=== PATIENT | female | born 1950 | race Caucasian/White ===

== ENCOUNTER 2018-10-24 11:57 | Emergency (ER) | payer MEDICARE, SELFPAY ==
[2018-10-24 12:07] VITALS: BP 105/64; PULSE 84; RESP 18; TEMP 36.6; O2SAT 100
[2018-10-24 12:14] VITALS: BP 105/64; PULSE 84; RESP 18; TEMP 36.6; O2SAT 100
--- NOTE | 2018-10-24 12:32 | ED.GENADULT ---
HPI - General Adult General Chief complaint: Urogenital-Female Stated complaint: Dialysis problem, parts that need to be replaced Time Seen by Provider: 10/24/18 12:06 Source: patient and family Mode of arrival: ambulatory Limitations: no limitations History of Present Illness HPI narrative: Patient is 68-year-old female with history of end-stage renal disease on peritoneal dialysis [place]algia [place] with peritoneal dialysis tubing problem. She actually was discharged from hospital in [place] 10/10/18 with sepsis thought to have a UTI. They arrived in [facility] on the . states that she has been a little more confused it comes and goes. Last evening she had confusion he thinks that she cut her tubing that looks up to the machine with some nail scissors. He said there was fluid all over the floor she does not remember doing it at all. She has no focal deficits. She denies any fevers she has absolutely no abdominal pain. She still does make some urine. Related Data Home Medications Medication Instructions Recorded Confirmed acyclovir 400 mg PO BID PRN 10/24/18 10/24/18 amitriptyline 25 mg PO BEDTIME 10/24/18 10/24/18 qsdbqigkgy-nsmahjfemzsfy-tnsz 2 cap PO Q6H PRN 10/24/18 10/24/18 clonazepam 2 mg PO BEDTIME PRN 10/24/18 10/24/18 diclofenac sodium [Voltaren] 0 g TOPICAL 1-2XD PRN 10/24/18 10/24/18 escitalopram oxalate 20 mg PO DAILY 10/24/18 10/24/18 fentanyl 75 mcg TOPICAL Q2D 10/24/18 10/24/18 fluticasone propionate [Flovent 2 puff INHALATION DAILY 10/24/18 10/24/18 HFA] gabapentin 300 mg PO BEDTIME 10/24/18 10/24/18 lansoprazole 30 mg PO QAM 10/24/18 10/24/18 levothyroxine 137 mcg PO DAILY 10/24/18 10/24/18 midodrine 2.5 mg PO TID 10/24/18 10/24/18 naloxone [Narcan] 1 spray INTRANASAL PRN PRN 10/24/18 10/24/18 ondansetron 4 mg PO PRN PRN 10/24/18 10/24/18 oxycodone 10 mg PO PRN PRN 10/24/18 10/24/18 potassium chloride 10 meq PO QPM 10/24/18 10/24/18 ropinirole 3 mg PO BEDTIME 10/24/18 10/24/18 salmeterol [Serevent Diskus] 1 inh INHALATION DAILY 10/24/18 10/24/18 Allergies Allergy/AdvReac Type Severity Reaction Status Date / Time cefaclor [From Ceclor] Allergy Intermediate Hives Verified 10/24/18 13:00 azithromycin Allergy Mild Rash Verified 10/24/18 13:00 ceftriaxone [From Rocephin] Allergy Mild Rash Verified 10/24/18 13:00 levofloxacin [From Levaquin] Allergy Mild Rash Verified 10/24/18 13:00 trazodone Allergy Mild Rash Verified 10/24/18 13:00 sulfamethoxazole Allergy Verified 10/24/18 13:00 [From Bactrim] trimethoprim [From Bactrim] Allergy Verified 10/24/18 13:00 diphenhydramine AdvReac Severe Insomnia Verified 10/24/18 13:00 [From Benadryl] doxepin AdvReac Severe fluid Verified 10/24/18 13:00 retention doxycycline AdvReac Severe Nausea Verified 10/24/18 13:01 nitrofurantoin AdvReac Severe Photosensit Verified 10/24/18 13:01 [From Macrodantin] ivity prochlorperazine AdvReac Severe Cramping Verified 10/24/18 13:00 [From Compazine] of the Muscles venlafaxine [From Effexor] AdvReac Severe Insomnia Verified 10/24/18 13:01 moxifloxacin [From Avelox] AdvReac Mild Photosensit Verified 10/24/18 13:00 ivity Review of Systems Review of Systems ROS Unobtainable: All systems reviewed & are unremarkable except as noted in HPI and below Constitutional Constitutional: Denies chills, Denies fever(s), Denies lethargy and Denies weakness Eyes Eyes: Denies change in vision, Denies eye discharge, Denies irritation and Denies loss of vision ENT Ears, Nose, Mouth, and Throat: Denies change in voice, Denies neck pain and Denies sore throat Cardiovascular Cardiovascular: Denies chest pain, Denies irregular heart rhythm, Denies lightheadedness, Denies palpitations, Denies dyspnea, Denies dyspnea on exertion and Denies orthopnea Respiratory Respiratory: Denies cough, Denies dyspnea, Denies dyspnea on exertion and Denies wheezing Gastrointestinal Gastrointestinal: Denies abdominal pain, Denies change in bowel habits, Denies diarrhea, Denies nausea and Denies vomiting Genitourinary Genitourinary: Reports as per HPI Musculoskeletal Musculoskeletal: Denies neck pain Integumentary/Breasts Skin/Breast: Denies pruritus, Denies erythema, Denies rash and Denies wounds Neurologic Neurologic: Denies loss of vision and Denies weakness Endocrine Endocrine: Denies palpitations Allergic/Immunologic Allergic/Immunologic: Denies wheezing [facility] Medical History COPD (chronic obstructive pulmonary disease) (Acute) Depression (Acute) ESRD on peritoneal dialysis (Acute) Fibromyalgia (Acute) Social History (Updated 10/24/18 @ 15:09 by Pau Brennan DO) marital status: lives independently: Yes Social History marital status: lives independently: Yes Exam Initial Vital Signs Initial Vital Signs: Vital Signs Temperature 97.8 F 10/24/18 12:07 Pulse Rate 84 10/24/18 12:07 Respiratory Rate 18 10/24/18 12:07 Blood Pressure 105/64 10/24/18 12:07 Pulse Oximetry 100 10/24/18 12:07 GENERAL: Alert pleasant female and in no acute distress. HEENT: Head atraumatic,EOMI, pupils reactive, face symmetric CARDIOVASCULAR: Regular rate and rhythm without murmurs, rubs or gallops. RESPIRATORY: Breath sounds equal bilaterally, no wheezes rales or rhonchi. ABDOMEN: Soft, nontender. Normoactive bowel sounds all 4 quadrants. No guarding or rebound. Peritoneal tubing in place with adapter noted EXTREMITIES: Normal range of motion, no clubbing or edema. Neurovascularly intact NEUROLOGICAL: Alert and oriented x4.Normal gait and speech. Cranial nerves II through XII grossly intact. SKIN: Warm, dry, no laceration, no petechiae, no rashes or lesions. Course Orders Ordered: ED Orders 10/24/18 12:43 XR chest 1V Stat 10/24/18 13:00 Ammonia (NH3) Stat Complete Blood Count AUTO DIFF Stat Comprehensive Metabolic Panel Stat Lactate (Lactic Acid) Stat Procalcitonin Stat 10/24/18 13:19 Blood Culture Stat 10/24/18 13:53 Urinalysis and Microscopic Stat Urine Culture Stat Discontinued Medications Vancomycin HCl (Vancomycin) 1,000 mg in 200 mls @ 200 mls/hr IV NOW ONE Stop: 10/24/18 15:38 Last Admin: 10/24/18 15:12 Dose: 200 mls/hr Documented by: RONY Piperacillin/Tazobactam/Dextrose (Zosyn) 3.375 gm in 50 mls @ 100 mls/hr IV NOW ONE Stop: 10/24/18 15:10 Last Admin: 10/24/18 16:08 Dose: Not Given Documented by: RONY Vital Signs Vital signs: Vital Signs - 8 hr 10/24/18 12:07 10/24/18 12:14 10/24/18 13:00 Temperature 97.8 F 97.8 F Pulse Rate 84 84 77 Respiratory Rate 18 18 18 Blood Pressure 105/64 Blood Pressure [Right Arm] 105/64 118/43 L Pulse Oximetry 100 100 100 10/24/18 13:51 10/24/18 14:00 10/24/18 14:30 Temperature Pulse Rate 77 78 75 Respiratory Rate 18 16 16 Blood Pressure Blood Pressure [Right Arm] 143/59 H 103/53 L 107/44 L Pulse Oximetry 100 100 100 Medical Decision Making Lab Data Lab results reviewed: Yes I reviewed the patient's lab results. Result diagrams: 10/24/18 13:00 10/24/18 13:00 Labs: Lab Results 10/24/18 10/24/18 10/24/18 Range/Units 13:00 13:00 13:00 WBC 7.5 (4.5-11.0) X10^3/uL RBC 3.15 L (4.0-5.2) X10^6/uL Hgb 11.1 L (12.0-16.0) g/dL Hct 32.7 L (36-46) % MCV 103.8 H (80-100) fL MCH 35.2 H (26-34) PG MCHC 33.9 (30-36) % RDW 15.7 H (11.6-14.8) % Plt Count 290 (150-400) X10^3/uL Neut % (Auto) 54.2 (50-75) % Lymph % (Auto) 28.9 (25-40) % [place] % (Auto) 10.9 (3-14) % Eos % (Auto) 5.5 H (2-4) % Baso % (Auto) 0.5 (0-2) % Neut # (Auto) 4100 (9513-8640) /uL Lymph # (Auto) 2200 (2164-1347) /uL [place] # (Auto) 800 (0-900) /uL Eos # (Auto) 400 (0-450) /uL Baso # (Auto) 0 (0-100) /uL Sodium 137 (137-145) mmol/L Potassium 5.1 (3.4-5.1) mmol/L Chloride 93 L (98-107) mmol/L Carbon Dioxide 26 (22-32) mmol/L BUN 69 H (7-17) mg/dL Creatinine 7.90 H* (0.52-1.04) mg/dL Estimated GFR 5.1 L (>60) mL/min BUN/Creatinine Ratio 8.7 (6-22) Glucose 146 H (80-110) mg/dL Lactate (0.7-2.1) mmol/L Calcium 9.6 (8.4-10.2) mg/dL Total Bilirubin 2.0 H (0.2-1.3) mg/dL AST 90 H (14-36) IU/L ALT 48 (9-52) IU/L Alkaline Phosphatase 137 H (38-126) U/L Ammonia (9-30) umol/L Total Protein 8.1 (6.3-8.2) g/dL Albumin 4.3 (3.5-5.0) g/dL Globulin 3.8 (1.7-4.1) g/dL Albumin/Globulin Ratio 1.1 (1.0-2.8) Procalcitonin 0.57 H (<0.5) ng/mL Urine Color Urine Appearance Urine pH (4.5-8.0) Ur Specific [place] (1.000-1.035) Urine Protein (Negative) Urine Glucose (UA) (Negative) g/dL Urine Ketones (NEGATIVE) Urine Occult Blood (Negative) Urine Nitrate (Negative) Urine Bilirubin (NEGATIVE) Urine Urobilinogen (0.2) E.U./dL Ur Leukocyte Esterase (NEGATIVE) Urine RBC Urine WBC Ur Squamous Epith Cells Ur Transition Epith Cell Ur Renal Epithelial Cell Calcium Oxalate Crystal Uric Acid Crystals Triple Phos Crystals Other Crystals Amorphous Sediment Urine Bacteria Hyaline Casts Granular Casts RBC Casts WBC Casts Other Casts Urine Mucus Urine Trichomonas Urine Yeast Urine Sperm Ur Culture Indicated? Micro UA Comment 10/24/18 10/24/18 10/24/18 Range/Units 13:00 13:00 13:53 WBC (4.5-11.0) X10^3/uL RBC (4.0-5.2) X10^6/uL Hgb (12.0-16.0) g/dL Hct (36-46) % MCV (80-100) fL MCH (26-34) PG MCHC (30-36) % RDW (11.6-14.8) % Plt Count (150-400) X10^3/uL Neut % (Auto) (50-75) % Lymph % (Auto) (25-40) % [place] % (Auto) (3-14) % Eos % (Auto) (2-4) % Baso % (Auto) (0-2) % Neut # (Auto) (6309-8439) /uL Lymph # (Auto) (2982-4686) /uL [place] # (Auto) (0-900) /uL Eos # (Auto) (0-450) /uL Baso # (Auto) (0-100) /uL Sodium (137-145) mmol/L Potassium (3.4-5.1) mmol/L Chloride (98-107) mmol/L Carbon Dioxide (22-32) mmol/L BUN (7-17) mg/dL Creatinine (0.52-1.04) mg/dL Estimated GFR (>60) mL/min BUN/Creatinine Ratio (6-22) Glucose (80-110) mg/dL Lactate 1.4 (0.7-2.1) mmol/L Calcium (8.4-10.2) mg/dL Total Bilirubin (0.2-1.3) mg/dL AST (14-36) IU/L ALT (9-52) IU/L Alkaline Phosphatase (38-126) U/L Ammonia 16.0 (9-30) umol/L Total Protein (6.3-8.2) g/dL Albumin (3.5-5.0) g/dL Globulin (1.7-4.1) g/dL Albumin/Globulin Ratio (1.0-2.8) Procalcitonin (<0.5) ng/mL Urine Color Urine Appearance Urine pH (4.5-8.0) Ur Specific [place] (1.000-1.035) Urine Protein (Negative) Urine Glucose (UA) (Negative) g/dL Urine Ketones (NEGATIVE) Urine Occult Blood (Negative) Urine Nitrate (Negative) Urine Bilirubin (NEGATIVE) Urine Urobilinogen (0.2) E.U./dL Ur Leukocyte Esterase (NEGATIVE) Urine RBC Cancelled Urine WBC Cancelled Ur Squamous Epith Cells Cancelled Ur Transition Epith Cell Cancelled Ur Renal Epithelial Cell Cancelled Calcium Oxalate Crystal Cancelled Uric Acid Crystals Cancelled Triple Phos Crystals Cancelled Other Crystals Cancelled Amorphous Sediment Cancelled Urine Bacteria Cancelled Hyaline Casts Cancelled Granular Casts Cancelled RBC Casts Cancelled WBC Casts Cancelled Other Casts Cancelled Urine Mucus Cancelled Urine Trichomonas Cancelled Urine Yeast Cancelled Urine Sperm Cancelled Ur Culture Indicated? Cancelled Micro UA Comment Cancelled 10/24/18 Range/Units 13:53 WBC (4.5-11.0) X10^3/uL RBC (4.0-5.2) X10^6/uL Hgb (12.0-16.0) g/dL Hct (36-46) % MCV (80-100) fL MCH (26-34) PG MCHC (30-36) % RDW (11.6-14.8) % Plt Count (150-400) X10^3/uL Neut % (Auto) (50-75) % Lymph % (Auto) (25-40) % [place] % (Auto) (3-14) % Eos % (Auto) (2-4) % Baso % (Auto) (0-2) % Neut # (Auto) (3223-7302) /uL Lymph # (Auto) (5068-6511) /uL [place] # (Auto) (0-900) /uL Eos # (Auto) (0-450) /uL Baso # (Auto) (0-100) /uL Sodium (137-145) mmol/L Potassium (3.4-5.1) mmol/L Chloride (98-107) mmol/L Carbon Dioxide (22-32) mmol/L BUN (7-17) mg/dL Creatinine (0.52-1.04) mg/dL Estimated GFR (>60) mL/min BUN/Creatinine Ratio (6-22) Glucose (80-110) mg/dL Lactate (0.7-2.1) mmol/L Calcium (8.4-10.2) mg/dL Total Bilirubin (0.2-1.3) mg/dL AST (14-36) IU/L ALT (9-52) IU/L Alkaline Phosphatase (38-126) U/L Ammonia (9-30) umol/L Total Protein (6.3-8.2) g/dL Albumin (3.5-5.0) g/dL Globulin (1.7-4.1) g/dL Albumin/Globulin Ratio (1.0-2.8) Procalcitonin (<0.5) ng/mL Urine Color Yellow Urine Appearance Cloudy Urine pH 7.0 (4.5-8.0) Ur Specific [place] 1.010 (1.000-1.035) Urine Protein 3+ H (Negative) Urine Glucose (UA) Negative (Negative) g/dL Urine Ketones Trace H (NEGATIVE) Urine Occult Blood 2+ H (Negative) Urine Nitrate Negative (Negative) Urine Bilirubin Negative (NEGATIVE) Urine Urobilinogen 0.2 (0.2) E.U./dL Ur Leukocyte Esterase 2+ H (NEGATIVE) Urine RBC >100/hpf H Urine WBC >100/hpf H Ur Squamous Epith Cells 0-1 /hpf Ur Transition Epith Cell Ur Renal Epithelial Cell Calcium Oxalate Crystal Uric Acid Crystals Triple Phos Crystals Other Crystals Amorphous Sediment Urine Bacteria None seen Hyaline Casts Granular Casts RBC Casts WBC Casts Other Casts Urine Mucus Urine Trichomonas Urine Yeast Urine Sperm Ur Culture Indicated? Specimen cultured Micro UA Comment Imaging Data Chest x-ray: Radiologist's impression: PROCEDURE: XR CHEST 1V INDICATIONS: confusion TECHNIQUE: One view of the chest was acquired. COMPARISON: None. FINDINGS: Surgical changes and devices: None. Lungs and pleura: Lungs are clear. No pleural effusions or pneumothorax. Mediastinum: Mediastinal contours appear normal. Heart size is normal. Bones and chest wall: No suspicious bony lesions. Overlying soft tissues appear unremarkable. IMPRESSION: No acute process. Dictated by: Wilian Bolton M.D. on 10/24/2018 at 13:51 MDM Narrative Medical decision making narrative: Patient does not appear to have peritonitis yet to however she has significant exposure with the tubing that has been cut. She has been confused for the last few days unknown if this is due to a possible UTI. She is afebrile no leukocytosis. Procalcitonin according to discharge summary was 4, today it is 0.57. She does make a small amount of urine it was quite cloudy possible infection again. X-ray is clear. She has no focal deficits I do not think stroke at this time. Initially spoke with Dr. Piña nephrology over at [facility]. Patient does not have the transfer tubing kit that is needed to exchange the tubing. Recommend IV antibiotics, transfer and admit to hospitalist. I called [facility] and spoke with marine meteorologist there as well. He states unable to exchange any sort of tubing unless the patient is transferred for admission. He is not sure that they have the correct tubing either. The patient is calling [facility] overnight shifting of the transfer tubing set Dr. Ding hospitalist at [facility] accepts patient for transfer. Discharge Plan Departure Patient Disposition: [facility] Clinical Impression: ESRD on peritoneal dialysis, Depression Urinary tract infection Qualifiers: Urinary tract infection type: site unspecified Hematuria presence: with hematuria Qualified Code(s): N39.0 - Urinary tract infection, site not specified Discharge Date/Time: 10/24/18 16:08 Prescriptions: No Action levothyroxine 137 mcg tablet 137 mcg PO DAILY RF: 0 potassium chloride 10 mEq tablet extended release 10 meq PO QPM RF: 0 acyclovir 400 mg tablet 400 mg PO BID PRN (Reason: Cold Sores) RF: 0 amitriptyline 25 mg tablet 25 mg PO BEDTIME RF: 0 ropinirole 2 mg tablet 3 mg PO BEDTIME RF: 0 lansoprazole 30 mg capsule,delayed release(DR/EC) 30 mg PO QAM RF: 0 clonazepam 2 mg tablet 2 mg PO BEDTIME PRN (Reason: Insomnia) RF: 0 Serevent Diskus 50 mcg/dose blister with device 1 inh INHALATION DAILY RF: 0 gabapentin 300 mg capsule 300 mg PO BEDTIME RF: 0 midodrine 2.5 mg tablet 2.5 mg PO TID RF: 0 fentanyl 75 mcg/hr patch 72 hour 75 mcg topical Q2D RF: 0 ondansetron 4 mg Tablet,Disintegrating 4 mg PO PRN PRN (Reason: Nausea) RF: 0 Flovent HFA 110 mcg/actuation HFA aerosol inhaler 2 puff inhalation DAILY RF: 0 escitalopram oxalate 20 mg tablet 20 mg PO DAILY RF: 0 diclofenac sodium [Voltaren] 1 % Gel 0 g TOPICAL 1-2XD PRN (Reason: pain) RF: 0 oxycodone 10 mg Tablet 10 mg PO PRN PRN (Reason: Breakthrough Pain) RF: 0 mhbmkazeyi-eivjayytrymmd-yvao 50-300-40 mg Capsule 2 cap PO Q6H PRN (Reason: Headache) RF: 0 Narcan 4 mg/actuation [place],Non-Aerosol 1 spray INTRANASAL PRN PRN (Reason: Opioid Overdose) RF: 0
--- NOTE | 2018-10-24 12:43 | DI.RAD.S_ITS ---
PROCEDURE: XR CHEST 1V INDICATIONS: confusion TECHNIQUE: One view of the chest was acquired. COMPARISON: None. FINDINGS: Surgical changes and devices: None. Lungs and pleura: Lungs are clear. No pleural effusions or pneumothorax. Mediastinum: Mediastinal contours appear normal. Heart size is normal. Bones and chest wall: No suspicious bony lesions. Overlying soft tissues appear unremarkable. IMPRESSION: No acute process. Dictated by: Wilian Bolton M.D. on 10/24/2018 at 13:51 Approved by: Wilian Bolton M.D. on 10/24/2018 at 13:52
[2018-10-24 13:00] VITALS: BP 118/43; PULSE 77; RESP 18; O2SAT 100
[2018-10-24 13:11] LABS: Add Manual Diff / Slide Review NO; Basophils Absolute Auto 0 /uL (0-100); Basophils Percent Auto 0.5 % (0-2); Eosinophils Absolute Auto 400 /uL (0-450); Eosinophils Percent Auto 5.5 % (2-4); Hematocrit 32.7 % (36-46); Hemoglobin 11.1 g/dL (12.0-16.0); Lymphocytes Absolute Auto 2200 /uL (1100-4500); Lymphocytes Percent Auto 28.9 % (25-40); Mean Corpuscular HGB Conc 33.9 % (30-36); Mean Corpuscular Hemoglobin 35.2 PG (26-34); Mean Corpuscular Volume 103.8 fL (80-100); Monocytes Absolute Auto 800 /uL (0-900); Monocytes Percent Auto 10.9 % (3-14); Neutrophils Absolute Auto 4100 /uL (1500-7000); Neutrophils Percent Auto 54.2 % (50-75); Platelet Count 290 X10^3/uL (150-400); Red Blood Cell Count 3.15 X10^6/uL (4.0-5.2); Red Cell Distribution Width 15.7 % (11.6-14.8); White Blood Cell Count 7.5 X10^3/uL (4.5-11.0)
[2018-10-24 13:22] LABS: Lactate (Lactic Acid) 1.4 mmol/L (0.7-2.1)
[2018-10-24 13:27] LABS: Potassium 5.1 mmol/L (3.4-5.1)
[2018-10-24 13:28] LABS: Alanine Aminotransferase 48 IU/L (9-52); Albumin 4.3 g/dL (3.5-5.0); Albumin Globulin Ratio 1.1 (1.0-2.8); Alkaline Phosphatase 137 U/L (38-126); Aspartate Aminotransferase 90 IU/L (14-36); BUN Creatinine Ratio 8.7 (6-22); Blood Urea Nitrogen 69 mg/dL (7-17); Calcium 9.6 mg/dL (8.4-10.2); Carbon Dioxide 26 mmol/L (22-32); Chloride 93 mmol/L (98-107); Estimated Glomerular Filt Rate 5.1 mL/min (>60); Globulin 3.8 g/dL (1.7-4.1); Glucose 146 mg/dL (80-110); HEMOLYSIS 190 (0-50); Sodium 137 mmol/L (137-145); Total Protein 8.1 g/dL (6.3-8.2)
[2018-10-24 13:43] LABS: Procalcitonin 0.57 ng/mL (<0.5)
[2018-10-24 13:51] VITALS: BP 143/59; PULSE 77; RESP 18; O2SAT 100
[2018-10-24 13:58] LABS: Bacteria Urine None Seen
[2018-10-24 13:59] LABS: Appearance Urine UA CLOUDY; Bilirubin Urine UA NEGATIVE (NEGATIVE); Color Urine UA YELLOW; Glucose Urine UA NEGATIVE (Negative); Ketones Urine UA TRACE (NEGATIVE); Leukocyte Esterase Urine UA 2+ (NEGATIVE); Nitrite Urine UA NEGATIVE (Negative); Occult Blood Urine UA 2+ (Negative); Protein Urine UA 3+ (Negative); Urobilinogen Urine UA 0.2 E.U./dL (0.2)
[2018-10-24 14:00] VITALS: BP 103/53; PULSE 78; RESP 16; O2SAT 100
[2018-10-24 14:05] LABS: Culture Indicated Urine Specimen Cultured; RBC Urine >100/HPF (0-5/HPF); Squamous Epithelial Cell Urine 0-1 /HPF (0-5/HPF); WBC Urine >100/HPF (0-5/HPF)
[2018-10-24 14:30] VITALS: BP 107/44; PULSE 75; RESP 16; O2SAT 100
--- NOTE | 2018-10-24 15:06 | PC.NURSE ---
pt having lower legs spasm, better with walking around.
[2018-10-24] MEDS: VANCOMYCIN 1,000 MG/200 ML PIGGYBACK 200 MG IV (15:12)
--- NOTE | 2018-10-24 16:07 | PC.NURSE ---
nurse at [facility] made aware, pt needs zosyn to be given.
== END 2018-10-24 16:08 | disposition short-term general hospital (02) ==
PROVIDERS: Emergency Provider Emergency Medicine
DX: N18.6 End stage renal disease (principal); N39.0 Urinary tract infection, site not specified; Z99.2 Dependence on renal dialysis
CPT/HCPCS: 36415; 36591; 71045; 80053; 81001; 82140; 83605; 84145; 85025; 87040; 87077; 87086; 87186; 96365; 99284